=== PATIENT | male | born 1980 | race Hispanic/Latino ===

== ENCOUNTER 2023-02-10 10:48 | Observation (INO) | payer OTHER, SELFPAY ==
[2023-02-10] VITALS (23 sets, daily range): BP systolic 123–155; BP diastolic 80–99; PULSE 74–141; RESP 16–31; TEMP 35.8–36.8; O2SAT 97–99; BMI 42.2; BMI 38.7
--- NOTE | ~2023-02-10 | XR_ITS ---
EXAMINATION: XR chest 2V DATE: 02/10/2023 12:18 INDICATION: Heart palpitations and lightheadedness TECHNIQUE: PA and lateral views of the chest are obtained. COMPARISON: None available FINDINGS: There are minimal airspace opacities of the left lung base. No pleural effusion or pneumoth orax. The cardiomediastinal silhouette is normal. The visualized bones and soft tissues are unremarka ble. IMPRESSION: 1. Left basilar airspace opacity, consistent with atelectasis/scarring versus pneumonia. Reviewed, dictated and finalized at location A. IMPRESSION: 1. Left basilar airspace opacity, consistent with atelectasis/scarring versus p neumonia.
--- NOTE | 2023-02-10 11:32 | ECG_ITS ---
Measurements Intervals [place] Rate: 112 P: ND: 0 QRS: -7 QRSD: 96 T: -1 QT: 302 QTc: 414 Interpretive Statements ATRIAL FIBRILLATION WITH RAPID VENTRICULAR RESPONSE CHANGES TO SINUS RHYTHM BORDERLINE T WAVE ABNORMALITY- INFERIOR LEADS ABNORMAL ECG NO PREVIOUS ECG AVAILABLE FOR COMPARISON Electronically Signed On 02-10-2023 11:46:31 CDT by Caden Magana D.O.
--- NOTE | 2023-02-10 11:46 | ED.ARRPALP ---
HPI - Arrhythmia/Palpitations General Chief Complaint: Arrhythmia/Palpitations Stated Complaint: palpitations and nausea intermittently for months Time Seen by Provider: 02/10/23 11:42 Source: patient and family Mode of arrival: ambulatory Limitations: language barrier History of Present Illness HPI narrative: Patient is 43 years old male, does not speak Czech, one of his significant other speaks Czech and is telling me that patient been complaining of palpitation for the last few months got worse yesterday. Currently patient is asymptomatic. Patient is not on any medications, he smokes, drinks, denies any drug use. Patient also denies any chest pain or shortness of breath. Related Data Allergies Allergy/AdvReac Type Severity Reaction Status Date / Time No Known Allergies Allergy Verified 02/10/23 10:50 Review of Systems Review of Systems: All systems reviewed & are unremarkable except as noted in HPI and below Exam Narrative: General appearance: Well-developed, well-nourished Skin: Normal color Head: Normocephalic, nontraumatic Eyes: Clear conjunctiva ENT: Oropharynx normal, ears normal, nose normal Neck: Supple, nontender Chest and respiratory: Airway patent, no respiratory distress, no accessory muscle use Heart: Tachycardia, irregular irregularity Abdomen: Soft, nontender, no organomegaly, quiet bowel sounds Vascular: Normal peripheral pulses, normal capillary refill. Musculoskeletal: Normal range of motion, nontender back Neurologic: Alert and oriented ?3, LENS GAUGER is normal as tested, no gross motor deficit Course Vital Signs Vital signs: Vital Signs Temperature 36.1 C L 02/10/23 10:51 Pulse Rate 86 02/10/23 10:51 Respiratory Rate 18 02/10/23 10:51 Blood Pressure 143/95 H 02/10/23 10:51 Pulse Oximetry 98 02/10/23 10:51 Oxygen Delivery Room Air 02/10/23 10:51 Temperature 36.1 C L 02/10/23 10:51 Pulse Rate 141 H 02/10/23 11:58 Respiratory Rate 16 02/10/23 11:39 Blood Pressure 155/87 H 02/10/23 11:58 Pulse Oximetry 98 02/10/23 10:51 Oxygen Delivery Room Air 02/10/23 10:51 MDM - Arrhythmia/Palpitations MDM Narrative Medical decision making narrative: Patient presents with intermittent palpitation, EKG on arrival showed A-fib with RVR, patient is asymptomatic, denies any shortness of breath or chest pain or lightheadedness. Work-up today showed normal white count, normal coags, normal chemistry. Chest x-ray showed left basilar airspace opacity consistent with atelectasis/scarring versus pneumonia, pneumonia is less likely. White count is normal, patient denies any shortness of breath or coughing. No fever or chills. New onset of A-fib with RVR is my concern. Patient will be admitted for further evaluation. 1 mg/kg Lovenox was given subcutaneously. Differential Diagnosis Differential diagnosis: Likely palpitations and artial fibrillation Lab Data 02/10/23 12:11 02/10/23 12:11 Labs: Lab Results 02/10/23 Range/Units 12:11 WBC 8.6 (4.5-10.0) K/mm3 RBC 5.04 (4.6-6.20) M/mm3 Hgb 16.5 (14.0-18.0) g/dL Hct 47.9 (42.0-52.0) % MCV 95.0 (80-100) fl MCH 32.7 (26-34) pg MCHC 34.4 (32-36) g/dl RDW 13.2 (11.5-14.5) % Plt Count 177 (150-375) k/mm3 MPV 9.9 (7.4-10.4) fl Immature Gran % (Auto) 0.5 (0-0.5) % Neut % (Auto) 68.9 (45.5-73.1) % Lymph % (Auto) 20.0 (18.3-44.2) % [place] % (Auto) 9.5 H (2.6-8.5) % Eos % (Auto) 0.8 (0-4.4) % Baso % (Auto) 0.3 (0.2-1.2) % Lymph # (Auto) 1.72 (0.9-3.2) K/mm3 [place] # (Auto) 0.8 H (0.1-0.6) K/mm3 Eos # (Auto) 0.1 (0-0.3) K/mm3 Baso # (Auto) 0.0 (0.0-0.1)
[2023-02-10] MEDS: dilTIAZem HCl INJ 25 MG/5 ML VIAL 10 MG IV PUSH (11:57)
[2023-02-10] MEDS: dilTIAZem 100 MG/100 ML 100 MG/100 ML BAG IV CONT (11:58)
[2023-02-10 12:18] LABS: Basophils Percent Auto 0.3 % (0.2-1.2); Eosinophils Absolute Auto 0.1 K/mm3 (0-0.3); Eosinophils Percent Auto 0.8 % (0-4.4); Hematocrit 47.9 % (42.0-52.0); Hemoglobin 16.5 g/dL (14.0-18.0); Immature Granulocyte Absolute 0.04 K/mm3 (0.00-0.031); Immature Granulocyte Percent A 0.5 % (0-0.5); Lymphocytes Absolute Auto 1.72 K/mm3 (0.9-3.2); Mean Corpuscular HGB Conc 34.4 g/dl (32-36); Mean Corpuscular Hemoglobin 32.7 pg (26-34); Mean Platelet Volume 9.9 fl (7.4-10.4); Monocytes Absolute Auto 0.8 K/mm3 (0.1-0.6); Monocytes Percent Auto 9.5 % (2.6-8.5); Neutrophils Absolute Auto 5.9 K/mm3 (1.3-6.7); Neutrophils Percent Auto 68.9 % (45.5-73.1); Platelet Count Result 177 k/mm3 (150-375); Red Blood Count 5.04 M/mm3 (4.6-6.20); Red Cell Distribution Width 13.2 % (11.5-14.5); White Blood Count 8.6 K/mm3 (4.5-10.0)
[2023-02-10 12:27] LABS: Alanine Aminotransferase 57 U/L (6-50); Alkaline Phosphatase 63 U/L (38-126); Anion Gap 5 mmol/L (8-16); Aspartate Amino Transferase 42 U/L (17-59); Bilirubin,Total 0.8 mg/dL (0.2-1.3); Blood Urea Nitrogen 11 mg/dL (9-20); Calcium 8.8 mg/dL (8.4-10.2); Carbon Dioxide 25 mmol/L (22-30); Chloride 106 mmol/L (98-107); Estimated CRCL calculation 205 ml/min; Estimated Glomerular Filt Rate > 60; Glucose 171 mg/dL (65-110); Lipase 62 U/L (23-300); Potassium 4.3 mmol/L (3.4-5.0); Sodium 136 mmol/L (137-145)
[2023-02-10 12:28] LABS: Prothrombin Time 13.5 Seconds (11.1-14.7)
[2023-02-10 12:30] LABS: Partial Thromboplastin Time 28.4 SECONDS (22.3-36.8)
[2023-02-10 12:39] LABS: Troponin I < 0.012 ng/mL (0.000-0.034)
[2023-02-10] MEDS: ENOXAPARIN 120 MG/0.8 ML SYRINGE SUB-Q (13:38)
--- NOTE | 2023-02-10 15:44 | ADMGEN ---
This patient, Martin Mares, was admitted to IMU Room 232-01 at 1544. Patient/family oriented to hospital policies and general routines including ID bracelet, bed and alarms, visiting hours, pain management, procedures, bathroom and other care routines, personal items, smoking policy, room service/diet, and visiting hours. Information on how to activate the Rapid Response Team has been discussed. Patient/Family are encouraged to report perceived risks to care and to ask questions if they do not understand what they are told or what they should do.
--- NOTE | 2023-02-10 16:19 | PM.IMHP ---
H&P: HPI History of Present Illness Date/Time: 02/10/23 15:50 Chief Complaint: Rapid heart rate. Narrative: This is a very pleasant 43-year-old Luxembourgish speaking male who presented to the emergency department via private vehicle from home for evaluation of a rapid heart rate. Yesterday morning he got up for work and noticed that his heart was racing and that he felt dizzy. He had a similar episode happened a few years ago and it lasted only 2 to 5 minute so he sat down and rested however the racing heart continued and he did not go to work. Due to ongoing symptoms he came in today for evaluation. With further questioning he does admit that on occasion he will wake up at night during vivid dreams and will have palpitations but again that is typically self-limiting. He denies syncope, near syncope, chest pain, pleuritic pain, shortness a breath, nausea, vomiting, sweats, paroxysmal nocturnal dyspnea, and lower extremity edema. On arrival to the emergency department he was found to be in atrial fibrillation with rapid ventricular response. He was given a bolus of IV diltiazem and has since been started on a diltiazem drip with improvement in his rate. He has no prior history of cardiac dysrhythmia. He drinks probably 16 oz of coffee a day and about the same amount of soda a day. He drinks only on the weekends but can drink up to 10 or 11 beers each day. He reports sleeping fine at night however his states that he snores and he occasionally has daytime sleepiness but no overt hypersomnolence. No history of thyroid disease. His weight has remained stable. Review of Systems Review of Systems: Twelve systems were reviewed and are negative except for as per HPI [facility] Past Medical History Medical History (Updated 02/10/23 @ 21:58 by Bia Conley PA-C) No significant past medical history Surgical History Surgical History (Updated 02/10/23 @ 21:58 by Bia Conley PA-C) No history of previous surgery Family History Family History Mother Hypertension Father Diabetes mellitus Social History Social History (Updated 02/10/23 @ 21:59 by Bia Conley PA-C) Social History: Emergency contact: lionel Salter ([phone]), friend. Lionel speaks Serbian and will related messages to the patient's spouse who would ultimately be his surrogate decision maker. Code status: Full code. Smoking status: Current some day smoker Tobacco type: cigars Additional smoking assessment comments: 1-2 cigars when he is at work. Alcohol intake: current Drinks per week: 10 Alcohol use details: Ten beers on the weekend. Lack of Transportation: No Lack of Food: Sometimes True Current Housing: I Have Housing Concerned About Future Housing: YES Difficulty Paying Gas/Electric Bills: No Difficulty Paying for Meds: No Currently Unemployed: No Education: High School Diploma/GED Difficulty w/ Childcare or Family Care: No Additional living arrangements comments: Lives with spouse and children in [place]. Additional occupation/education comments: Employed at a [employer] facility. Spiritual care concerns: No Meds Home Medications and Allergies Home Medications Medication Instructions Recorded Confirmed Type No Home Medications 02/10/23 02/10/23 History Allergies Allergy/AdvReac Type Severity Reaction Status Date / Time No Known Allergies Allergy Verified 02/10/23 10:50 Vital Signs Vital Signs - 24 hr 02/10/23 10:51 02/10/23 11:39 02/10/23 11:58 Temperature 97.0 F L Pulse Rate 86 131 H 141 H Respiratory Rate 18 16 Blood Pressure 143/95 H 155/87 H Pulse Oximetry 98 Oxygen Delivery Room Air 02/10/23 11:51 02/10/23 12:00 02/10/23 12:31 Temperature Pulse Rate 133 H 129 H 115 H Respiratory Rate 20 20 17 Blood Pressure Pulse Oximetry Oxygen Delivery 02/10/23 12:32 02/10/23 13:31 01/23
[2023-02-10 17:01] LABS: Troponin I < 0.012 ng/mL (0.000-0.034)
[2023-02-10 20:07] LABS: Troponin I < 0.012 ng/mL (0.000-0.034)
--- NOTE | 2023-02-10 20:54 | PC.NURSE ---
Pt found with cardizem gtt running at 10mg/hr when initially assessed.
[2023-02-10] MEDS: dilTIAZem 100 MG/100 ML 100 MG/100 ML BAG 10 MG IV CONT (22:05)
--- NOTE | 2023-02-10 22:24 | ECG_ITS ---
Measurements Intervals [place] Rate: 73 P: 61 TN: 176 QRS: 70 QRSD: 106 T: 68 QT: 376 QTc: 416 Interpretive Statements SINUS RHYTHM POSSIBLE LEFT ATRIAL ENLARGEMENT BORDERLINE T WAVE ABNORMALITY- ANTEROLAT/HIGH LAT LEADS BORDERLINE ECG COMPARED TO ECG 02/10/2023 11:40:26 SINUS RHYTHM NOW PRESENT Electronically Signed On 02-11-2023 7:36:36 CDT by Caden Magana D.O.
[2023-02-10] MEDS: METOPROLOL TARTRATE 25 MG TABLET PO (23:33)
[2023-02-11] VITALS (12 sets, daily range): BP systolic 102–140; BP diastolic 78–99; PULSE 62–88; RESP 16–20; TEMP 36.1–36.9; O2SAT 95–99
--- NOTE | 2023-02-11 07:48 | PM.IMPN ---
Progress Note: A&P Assessment and Plan (1) Atrial fibrillation with rapid ventricular response: Code(s): I48.91 - Unspecified atrial fibrillation Status: Acute Assessment and Plan: It sounds as though the patient went into AFib/RVR yesterday morning. On occasion he has experienced self-limiting palpitations at nighttime but that is rare. Precipitating etiology is not entirely clear though may be related to excess caffeine and alcohol use, possible sleep apnea, versus other. Currently on a diltiazem drip with improvement in his rate. We will continue with that for now. Echocardiogram, apnea link, and TSH ordered for further evaluation. Cardiology consulted for their opinion. 02/11: CHADs vasc = 0 (2) Elevated blood pressure reading: Code(s): R03.0 - Elevated blood-pressure reading, without diagnosis of hypertension Status: Acute Assessment and Plan: Blood pressures were in the 140s to 150s systolic on arrival but are now well within normal limits on the diltiazem drip. Continue to monitor for now and initiate antihypertensive medication depending on his trend once off diltiazem. (3) Elevated random blood glucose level: Code(s): R73.09 - Other abnormal glucose Status: Acute Assessment and Plan: Random glucose was 171. A1c = 7 New dx DM-2 Consult director furniture Accuchecks, SSI Plan DVT prophylaxis with SCDs GI prophylaxis not indicated Code status full code Subjective Date/time seen: 02/11/23 07:48 Interval history: No overnight events noted. No chest pain or shortness of breath. No nausea, vomiting or diarrhea. No fevers or chills. Patient feeling much better and ready to go home. Review of Systems Review of Systems: 12 point review of systems was assessed and was negative except as noted in the HPI Exam Narrative: General: No acute distress, alert and oriented per baseline HEENT: Atraumatic, normocephalic, mucous membranes moist CV: Regular rate and rhythm, S1, S2 Lungs: Clear to auscultation bilaterally, no rales or crackles noted, no wheezes, good air entry Abdomen: Soft, nontender, nondistended Extremities: Normal to inspection Skin: No rashes noted, no lesions or wounds seen Psych: Euthymic, normal affect Objective Data Vital Signs Vital Signs: Vital Signs - 24 hr 02/10/23 10:51 02/10/23 11:39 02/10/23 11:58 Temperature 97.0 F L Pulse Rate 86 131 H 141 H Respiratory Rate 18 16 Blood Pressure 143/95 H 155/87 H Pulse Oximetry 98 Oxygen Delivery Room Air 02/10/23 11:51 02/10/23 12:00 02/10/23 12:31 Temperature Pulse Rate 133 H 129 H 115 H Respiratory Rate 20 20 17 Blood Pressure Pulse Oximetry Oxygen Delivery 02/10/23 12:32 02/10/23 13:31 02/10/23 13:35 Temperature 98.0 F 98.3 F Pulse Rate 101 H 123 H 120 H Respiratory Rate 18 20 17 Blood Pressure 144/99 H 126/99 H Pulse Oximetry 98 97 Oxygen Delivery 02/10/23 13:53 02/10/23 14:17 02/10/23 14:42 Temperature 98.0 F Pulse Rate 124 H 132 H 130 H Respiratory Rate 21 H 31 H 20 Blood Pressure 134/80 Pulse Oximetry Oxygen Delivery 02/10/23 14:45 02/10/23 15:22 02/10/23 16:50 Temperature 98.2 F 96.4 F L Pulse Rate 121 H 122 H 117 H Respiratory Rate 24 H 20 20 Blood Pressure 132/84 126/88 Pulse Oximetry 99 Oxygen Delivery 02/10/23 16:00 02/10/23 16:00 02/10/23 18:00 Temperature Pulse Rate 124 H 96 Respiratory Rate Blood Pressure Pulse Oximetry Oxygen Delivery Room Air 02/10/23 20:00 02/10/23 20:00 02/10/23 22:05 Temperature 97.8 F Pulse Rate 74 74 76 Respiratory Rate 18 Blood Pressure 123/81 123/81 123/81 Pulse Oximetry 97 Oxygen Delivery 02/10/23 20:00 02/10/23 20:00 02/10/23 22:00 Temperature Pulse Rate 74 84 76 Respiratory Rate 18 Blood Pressure Pulse Oximetry 97 Oxygen Delivery Room Air 02/10/23 23:32 02/10/23 23:33 02/11/23
[2023-02-11 07:53] LABS: Anion Gap 6 mmol/L (8-16); Blood Urea Nitrogen 14 mg/dL (9-20); Calcium 8.9 mg/dL (8.4-10.2); Carbon Dioxide 27 mmol/L (22-30); Chloride 104 mmol/L (98-107); Cholesterol 211 mg/dL (0-200); Estimated CRCL calculation 204 ml/min; Estimated Glomerular Filt Rate > 60; Glucose 130 mg/dL (65-110); HDL Direct 41 mg/dL; Magnesium 2.2 mg/dL (1.6-2.3); Potassium 3.7 mmol/L (3.4-5.0); Sodium 137 mmol/L (137-145); Triglycerides 163 mg/dL (<150)
[2023-02-11 08:04] LABS: LDL Cholesterol Direct 132 mg/dL
[2023-02-11 08:16] LABS: Basophils Percent Auto 0.5 % (0.2-1.2); Eosinophils Absolute Auto 0.1 K/mm3 (0-0.3); Eosinophils Percent Auto 0.9 % (0-4.4); Hematocrit 45.8 % (42.0-52.0); Hemoglobin 15.6 g/dL (14.0-18.0); Immature Granulocyte Absolute 0.03 K/mm3 (0.00-0.031); Immature Granulocyte Percent A 0.5 % (0-0.5); Lymphocytes Absolute Auto 2.01 K/mm3 (0.9-3.2); Lymphocytes Percent Auto 30.3 % (18.3-44.2); Mean Corpuscular HGB Conc 34.1 g/dl (32-36); Mean Corpuscular Hemoglobin 32.8 pg (26-34); Mean Corpuscular Volume 96.4 fl (80-100); Mean Platelet Volume 10.1 fl (7.4-10.4); Monocytes Absolute Auto 0.7 K/mm3 (0.1-0.6); Monocytes Percent Auto 10.1 % (2.6-8.5); Neutrophils Absolute Auto 3.8 K/mm3 (1.3-6.7); Neutrophils Percent Auto 57.7 % (45.5-73.1); Platelet Count Result 175 k/mm3 (150-375); Red Blood Count 4.75 M/mm3 (4.6-6.20); Red Cell Distribution Width 13.2 % (11.5-14.5); White Blood Count 6.6 K/mm3 (4.5-10.0)
[2023-02-11] MEDS: METOPROLOL TARTRATE 25 MG TABLET PO (08:52)
[2023-02-11 09:06] LABS: Alanine Aminotransferase 55 U/L (6-50); Albumin Level 3.8 g/dL (3.5-5.1); Alkaline Phosphatase 52 U/L (38-126); Aspartate Amino Transferase 45 U/L (17-59); Bilirubin,Total 0.8 mg/dL (0.2-1.3)
--- NOTE | 2023-02-11 12:05 | PM.CNCAR ---
Assessment and Plan Assessment and plan (1) Paroxysmal atrial fibrillation: Code(s): I48.0 - Paroxysmal atrial fibrillation Status: Acute Assessment and Plan: He has a chads Vasc score of 0. Atrial fibrillation likely a result of which alcohol use, possible sleep apnea. Will start metoprolol tartrate 25 mg p.o. b.i.d.. He can be discharged home at this point. Further workup can be performed as an outpatient. Aspirin 81 mg daily to be started. He will need outpatient 2D echocardiogram Doppler, formal sleep study as well as the mental stress testing. I have also recommended encouraged less alcohol use. Tobacco abuse counseling was also performed. His potassium is slightly low replace his potassium 40 mEq p.o. x1. Will also order free T4 level. (2) Tobacco abuse: Code(s): Z72.0 - Tobacco use Status: Acute Assessment and Plan: Counseling performed (3) Alcohol abuse: Code(s): F10.10 - Alcohol abuse, uncomplicated Status: Acute Assessment and Plan: Counseling performed (4) Paroxysmal nocturnal dyspnea: Code(s): R06.00 - Dyspnea, unspecified Status: Acute Assessment and Plan: Probably has sleep apnea. Needs formal outpatient sleep study History of Present Illness History of Present Illness Consult date/time: 02/11/23 12:05 Requesting physician: Blaze Lopez MD Consult reason: atrial fibrillation Reason For Visit: afib w RVR Narrative: Date of service 02/11/2023 Reason consultation: Atrial fibrillation Requesting provider: Dr. Lopez History patient is a 43-year-old male who presented to the hospital because of palpitations. For about 48 hours he had been having in min episodes of palpitations. He symptoms has some dizziness as well as his heart racing. He has no chest pain, syncope, orthopnea, edema or unusual shortness of breath. Due to the fact that his symptoms were not improving though yesterday he came to the hospital for further evaluation. He was found to be in atrial fibrillation with rapid ventricular response started on diltiazem drip with improvement of his heart rate. He drinks almost a 12 pack per day on weekends and does drink nightly. He also describes significant apneic episodes, paroxysmal nocturnal dyspnea as well as heavy snoring. Review of Systems Review of Systems: All systems reviewed & are unremarkable except as noted in HPI and below Constitutional: Constitutional: Denies body ache(s) Eyes: Eyes: Denies blurry vision ENT: Reports Normal hearing present Cardiovascular: Cardiovascular: Denies chest pain, Denies diaphoresis and Reports palpitations Respiratory: Respiratory: Denies dyspnea Gastrointestinal: Gastrointestinal: Denies hematochezia Genitourinary: Genitourinary: Denies hematuria Musculoskeletal: Musculoskeletal: Denies back pain Integumentary/Breasts: Skin/Breast: Denies erythema Neurologic: Denies Abnormal speech present Psychiatric: Psychiatric: Denies behavioral changes Endocrine: Endocrine: Denies excessive sweating Hematologic/Lymphatic: Hematologic/Lymphatic: Denies easy bleeding Allergic/Immunologic: Allergic/Immunologic: Denies GI upset with certain foods PMFSH Past Medical History Medical History (Updated 02/11/23 @ 12:09 by Erik Charles MD) No significant past medical history Paroxysmal atrial fibrillation Tobacco abuse Surgical History Surgical History No history of previous surgery Family History Family History Mother Hypertension Father Diabetes mellitus Social History Social History Social History: Emergency contact: lionel Gaetano ([phone]), friend. Lionel speaks Ukrainian and will related messages to the patient's spouse who would ultimately be his surrogate decision maker. [place]
[2023-02-11 13:00] LABS: T4 Thyroxine 8.11 ug/dL (5.53-11.0)
--- NOTE | 2023-02-11 14:56 | PM.DS ---
DS: Admitting Diagnosis Discharge Date 02/11/23 Admitting Diagnosis rapid heart rate DS: Discharge Diagnosis Discharge Diagnosis (1) Atrial fibrillation with rapid ventricular response: Code(s): I48.91 - Unspecified atrial fibrillation Status: Acute Assessment and Plan: It sounds as though the patient went into AFib/RVR yesterday morning. On occasion he has experienced self-limiting palpitations at nighttime but that is rare. Precipitating etiology is not entirely clear though may be related to excess caffeine and alcohol use, possible sleep apnea, versus other. Currently on a diltiazem drip with improvement in his rate. We will continue with that for now. Echocardiogram, apnea link, and TSH ordered for further evaluation. Cardiology consulted for their opinion. 02/11: CHADs vasc = 0, cardio recommended d/c and f/u with echo, PSG, stress test and start aspirin, metoprolol, stop smoking + alcohol use (2) Elevated blood pressure reading: Code(s): R03.0 - Elevated blood-pressure reading, without diagnosis of hypertension Status: Acute Assessment and Plan: Blood pressures were in the 140s to 150s systolic on arrival but are now well within normal limits on the diltiazem drip. Continue to monitor for now and initiate antihypertensive medication depending on his trend once off diltiazem. 02/11: off drip, improved on metoprolol (3) Elevated random blood glucose level: Code(s): R73.09 - Other abnormal glucose Status: Acute Assessment and Plan: Random glucose was 171. A1c = 7 New dx DM-2, consult balloon seller outpatient Accuchecks, SSI 02/11: start metformin, handout in [place] given to patient Plan DVT prophylaxis with SCDs GI prophylaxis not indicated Code status full code DS: Summary Hospital Course Hospital Course: 43-year-old male who presented to the hospital because of palpitations.? He was found to be in atrial fibrillation with rapid ventricular response started on diltiazem drip with improvement of his heart rate.? He drinks almost a 12 pack per day on weekends and does drink nightly.? He also describes significant apneic episodes, paroxysmal nocturnal dyspnea as well as heavy snoring. Chads Vasc score of 0.? Atrial fibrillation likely a result of which alcohol use, tobacco use, possible sleep apnea.? Will start metoprolol tartrate 25 mg p.o. b.i.d..? He can be discharged home at this point.? Further workup can be performed as an outpatient.? Aspirin 81 mg daily to be started.? He will need outpatient 2D echocardiogram Doppler, formal sleep study as well as treadmill stress testing.? A1c found to be 7, he has a new onset diabetic. He was started on metformin and handout for new diagnosis and metformin given in [place]. Please see above and med rec for details. Time Spent with Patient Time attestation: Total time spent providing and/or coordinating discharge services: Exam Narrative: General: No acute distress, alert and oriented per baseline HEENT: Atraumatic, normocephalic, mucous membranes moist CV: Regular rate and rhythm, S1, S2 Lungs: Clear to auscultation bilaterally, no rales or crackles noted, no wheezes, good air entry Abdomen: Soft, nontender, nondistended Extremities: Normal to inspection Skin: No rashes noted, no lesions or wounds seen Psych: Euthymic, normal affect DS: Data Data Completed and Pending Labs on day of discharge: Labs from last 24 hours 02/11/23 02/11/23 02/10/23 07:11 07:09 19:37 WBC 6.6 RBC 4.75 Hgb 15.6 Hct 45.8 MCV 96.4 MCH 32.8 MCHC 34.1 RDW 13.2 Plt Count 175 MPV 10.1 Immature Gran % (Auto) 0.5 Neut % (Auto) 57.7 Lymph % (Auto) 30.3 [place] % (Auto) 10.1 H Eos % (Auto) 0.9 Baso % (Auto) 0.5 Lymph # (Auto) 2.01 [place] # (Auto) 0.7 H Eos # (Auto) 0.1 Baso # (Auto) 0.0 Abs Immat Gran (auto) 0.03 Absolute Neuts (auto) 3.8
[2023-02-11] MEDS: POTASSIUM CHLORIDE 20 MEQ TABLET 40 MEQ PO (16:21)
== END 2023-02-11 17:40 | disposition home or self-care (01) ==
LOC: ANHED 12:44 → ANHIMU 02-11 14:38
PROVIDERS: Internal Medicine Cardiovascular Disease; Physician Assistant; Admitting Provider Chiropractor; Emergency Provider Emergency Medicine; Visit Provider Student in an Organized Health Care Education/Training Program
DX: I48.91 Unspecified atrial fibrillation (principal); R03.0 Elevated blood-pressure reading, without diagnosis of hypertension; R73.09 Other abnormal glucose; R06.00 Dyspnea, unspecified; R94.31 Abnormal electrocardiogram [ECG] [EKG]; F10.90 Alcohol use, unspecified, uncomplicated; R10.10 Upper abdominal pain, unspecified; F17.290 Nicotine dependence, other tobacco product, uncomplicated
CPT/HCPCS: 36415; 71046; 80048; 80053; 80061; 80076; 83036; 83690; 83735; 84436; 84443; 84484; 85025; 85610; 85730; 93005; 94762; 96365; 96366; 96372; 99285; A9270; G0378; J1650

== ENCOUNTER 2023-11-02 12:00 | Emergency (ER) | payer OTHER, SELFPAY ==
--- NOTE | ~2023-11-02 | XR_ITS ---
EXAMINATION: XR chest 2V DATE: 11/02/2023 13:46 INDICATION: Hypertension TECHNIQUE: Frontal and lateral views of the chest are obtained COMPARISON: 02/10/2023 FINDINGS: There is chronic atelectasis or scarring of the left lung base. The lungs are free of acute opacities. No pleural effusion or pneumothorax. The cardiomediastinal silhouette is normal. There is mild thoracic spondylosis. IMPRESSION: 1. No acute cardiopulmonary abnormality. Reviewed, dictated and finalized at location B. ER MACHINE
[2023-11-02 12:01] VITALS: BP 175/113; PULSE 108; RESP 18; TEMP 36.8; O2SAT 98
--- NOTE | 2023-11-02 13:18 | ECG_ITS ---
Measurements Intervals [place] Rate: 103 P: 9 [place]: 169 QRS: -28 QRSD: 97 T: 1 QT: 347 QTc: 454 Interpretive Statements SINUS TACHYCARDIA BORDERLINE LEFT AXIS DEVIATION [QRS AXIS < -20] ABNORMAL RHYTHM ECG COMPARED WITH 02/20/2023 HEART RATE INCREASED, AXIS IS LEFTWARD Electronically Signed On 11-02-2023 15:42:08 BIOPSYCHOLOGIST by Nicho Kemp M.D.
[2023-11-02 13:30] LABS: Basophils Percent Auto 0.4 % (0.2-1.2); Eosinophils Percent Auto 0.6 % (0-4.4); Hematocrit 46.2 % (42.0-52.0); Hemoglobin 15.8 g/dL (14.0-18.0); Immature Granulocyte Absolute 0.02 K/mm3 (0.00-0.031); Immature Granulocyte Percent A 0.3 % (0-0.5); Lymphocytes Percent Auto 17.7 % (18.3-44.2); Mean Corpuscular HGB Conc 34.2 g/dl (32-36); Mean Corpuscular Volume 93.7 fl (80-100); Mean Platelet Volume 9.8 fl (7.4-10.4); Monocytes Percent Auto 14.1 % (2.6-8.5); Neutrophils Absolute Auto 4.5 K/mm3 (1.3-6.7); Neutrophils Percent Auto 66.9 % (45.5-73.1); Platelet Count Result 191 k/mm3 (150-375); Red Blood Count 4.93 M/mm3 (4.6-6.20); Red Cell Distribution Width 13.3 % (11.5-14.5); White Blood Count 6.8 K/mm3 (4.5-10.0)
--- NOTE | 2023-11-02 13:44 | ED.GENADULT ---
HPI - General Adult General Chief complaint: Recheck/Abnormal Lab/Rx Stated complaint: high blood pressure Time Seen by Provider: 11/02/23 13:42 History of Present Illness HPI narrative: Patient is a 43-year-old male who presents to the emergency department this afternoon due to an elevated blood pressure. Patient states that he was at his PCPs office to have his home medications are refilled and while at triage showing him they noted that his blood pressure was elevated and sent him to our emergency department for further evaluation. Patient wanted his aspirin, metformin, and metoprolol refilled. He denies any history of elevated blood pressure or hypertension and states that the metoprolol was prescribed to him here at [facility] after hospital visit for an elevated heart rate/atrial fibrillation. Patient is currently denying any symptoms including chest pain, shortness of breath, nausea, vomiting, abdominal pain, dysuria, hematuria, constipation, diarrhea, melena, hematochezia, fevers or chills. Patient also denies any headaches, dizziness, lightheadedness, blurry visions, focal weakness, numbness and or tingling. There are no other modifying, alleviating, or precipitating factors at this time. Related Data Allergies Allergy/AdvReac Type Severity Reaction Status Date / Time No Known Allergies Allergy Verified 02/10/23 10:50 Review of Systems Review of Systems: All systems are reviewed and are negative unless stated otherwise in the HPI. [facility] Past Medical History Medical History No significant past medical history Paroxysmal atrial fibrillation Tobacco abuse Surgical History Surgical History No history of previous surgery Family History Family History Mother Hypertension Father Diabetes mellitus Social History Social History Social History: Emergency contact: lionel Salter ([phone]), friend. Lionel speaks Pashto and will related messages to the patient's spouse who would ultimately be his surrogate decision maker. Code status: Full code. Smoking status: Current some day smoker Tobacco type: cigars Additional smoking assessment comments: 1-2 cigars when he is at work. Alcohol intake: current Drinks per week: 10 Alcohol use details: Ten beers on the weekend. Lack of Transportation: No Lack of Food: Sometimes True Current Housing: I Have Housing Concerned About Future Housing: YES Difficulty Paying Gas/Electric Bills: No Difficulty Paying for Meds: No Currently Unemployed: No Education: High School Diploma/GED Difficulty w/ Childcare or Family Care: No Additional living arrangements comments: Lives with spouse and children in [place]. Additional occupation/education comments: Employed at a [employer] facility. Spiritual care concerns: No Exam Narrative: General: Alert, awake, afebrile, in no acute distress. HEENT: PERRL, no rhinorrhea, no post nasal drip, oropharynx clear. Neck: Trachea midline, no JVD, no lymphadenopathy. Cardiovascular: Regular rate and rhythm, no murmurs, rubs or gallops, no peripheral edema. Respiratory: Clear to auscultation bilaterally, no tachypnea, no wheezing, no rhonchi, no rubs, no respiratory distress. Abdomen: Soft, nontender, nondistended, no rebound, no guarding, no peritoneal signs. Musculoskeletal: No joint swelling or deformity, normal muscle tone. Skin: No rashes or petechia, no signs of infection. Psychiatric: Alert and oriented, normal behavior and judgment for situation. Neurological: Alert and oriented to person, place, and time. Follows all commands. No focal deficits, speech is clear and fluent. Course Vital Signs Vital signs: Vital Signs Temperature 98.2 F 11/02/23 12:01 Pulse Rate
[2023-11-02 13:49] LABS: Partial Thromboplastin Time 29.7 SECONDS (22.3-36.8); Prothrombin Time 13.4 Seconds (11.1-14.7)
[2023-11-02 13:54] LABS: Troponin I 0.017 ng/mL (0.000-0.034)
[2023-11-02 14:03] LABS: Alanine Aminotransferase 89 U/L (6-50); Albumin Level 4.3 g/dL (3.5-5.1); Alkaline Phosphatase 92 U/L (38-126); Anion Gap 10 mmol/L (8-16); Aspartate Amino Transferase 92 U/L (17-59); Bilirubin,Total 0.8 mg/dL (0.2-1.3); Blood Urea Nitrogen 10 mg/dL (9-20); Calcium 8.9 mg/dL (8.4-10.2); Carbon Dioxide 22 mmol/L (22-30); Chloride 106 mmol/L (98-107); Estimated CRCL calculation 193 ml/min; Estimated Glomerular Filt Rate > 60; Glucose 194 mg/dL (65-110); Lipase 60 U/L (23-300); Sodium 138 mmol/L (137-145)
[2023-11-02 14:30] LABS: Appearance Urine Clear (Clear); Bacteria Urine None Seen /hpf; Bilirubin Urine Negative (Negative); Blood Urine Negative (Negative); Color Urine Yellow (Yellow); Glucose Urine UA Negative (Negative); Ketones Urine Negative (Negative); Leukocyte Esterase Ur Negative LEU/UL (Negative); Nitrate Urine Negative (Negative); Non Pathogenic Casts 0-2; Protein Urine Trace mg/dL (Negative); RBC Urine 0-2 /hpf (0-2); Specific Grav Ur 1.018 (1.001-1.035); Squamous Epithelial Cell Urine None seen /hpf (Few); WBC Urine 0-5 /hpf; pH Urine 5.5 (5.0-9.0)
[2023-11-02 14:39] LABS: Add Urine Microscopic? YES
[2023-11-02 15:30] VITALS: BP 134/92; PULSE 92; RESP 20; O2SAT 95
== END 2023-11-02 15:31 | disposition home or self-care (01) ==
PROVIDERS: Internal Medicine Endocrinology, Diabetes & Metabolism; Emergency Provider Emergency Medicine
DX: R03.0 Elevated blood-pressure reading, without diagnosis of hypertension (principal); Z76.0 Encounter for issue of repeat prescription; T38.3X6A Underdosing of insulin and oral hypoglycemic [antidiabetic] drugs, initial encounter; T44.7X6A Underdosing of beta-adrenoreceptor antagonists, initial encounter; T39.016A Underdosing of aspirin, initial encounter; I48.0 Paroxysmal atrial fibrillation; F17.290 Nicotine dependence, other tobacco product, uncomplicated; R00.0 Tachycardia, unspecified
CPT/HCPCS: 36415; 71046; 80053; 81001; 83690; 84484; 85025; 85610; 85730; 93005; 99284